=== PATIENT | male | born 1950 | race Caucasian/White ===

== ENCOUNTER 2016-08-30 21:58 | Emergency (ER) | payer MEDICARE, OTHER ==
--- NOTE | 2016-08-30 22:41 | RADIOLOGY REPORT ---
HISTORY: Left thumb injury. COMPARISON: None. FINDINGS: 3 views of the fingers obtained. There is no fracture. There is no lytic or sclerotic lesion. There is no radiopaque foreign body. There is hyperextension of the thumb at the interphalangeal joint on the lateral view without dislocation. IMPRESSION: 1. No acute fracture. 2. Hyperextension of the thumb at the interphalangeal joint on the lateral view. Clinical correlation with physical exam is suggested. Ligamentous or tendinous injury cannot be excluded. Final Electronic Signature: This report was electronically signed by Osmel Hill MD on 08/30/2016 1 0:39 PM. [email or web address] /
--- NOTE | 2016-08-30 22:56 | ER PHYSICIAN DOCUMENTATION ---
Physician Documentation [facility] Name:Shiva Ellis Age:66 yrs Sex:Male :1950 Arrival Date:08/30/2016 Time:21:58 Bed6 Private MD:Aleida Villareal EDklaudiaFranck Disposition: 08/30/16 22:42 Discharged to Home/Self Care. Impression: Thumb Sprain. - Condition is Good. - Discharge Instructions: SPRAIN HAND. - Medical Reconciliation form form. - Follow up: Aleida Villareal MD; When: 7 - 10 days; Reason: Recheck today's complaints. - Problem is new. - Symptoms have improved. HPI: 08/30 22:38 This 66 yrs old Male presents to ER via Walk In with complaints of Hand sc Injury - LEFT. 22:38 The patient or guardian reports injury. The complaints affect the palmar aspect of sc distal phalanx of left thumb. Context: The problem was sustained at home, resulted from heavy wire from O2 concentrator fell on thumb. Onset: The symptom(s)/episode began/occurred just prior to arrival. Modifying factors: the symptoms are aggravated by nothing. Associated signs and symptoms: The patient has no apparent associated signs or symptoms. Historical: - Allergies: phenylthiazine; - PMHx: Asthma; - PSHx: Appendectomy; Knee surgery; HERNIA REPAIR; - Tetanus: < 10 years. - Ebola Screening: : Patient denies exposure to infectious person. Patient denies travel to an Ebola-affected area in the 21 days before illness onset. . - Immunization history: Flu Vaccine < 1 year. - Social history: Smoking status: Patient states was never smoker of tobacco. Patient/guardian denies using alcohol. ROS: 22:40 Constitutional: Negative for fever, chills, and weight loss. sc Eyes: Negative for injury, pain, redness, and discharge. ENT: Negative for injury, pain, and discharge. Neck: Negative for injury, pain, and swelling. Cardiovascular: Negative for chest pain, palpitations, and edema. Back: Negative for injury and pain. Skin: Negative for injury, rash, and discoloration. 22:40 Neuro: Negative for headache, weakness, numbness, tingling, and seizure. sc 22:40 MS/extremity: Positive for injury or acute deformity. Exam: Constitutional: This is a well developed, well nourished patient who is awake, alert, and in no acute distress. Head/Face: Normocephalic, atraumatic. Eyes: Pupils equal round and reactive to light, extra-ocular motions intact. Lids and lashes normal. Conjunctiva and sclera are non-icteric and not injected. Cornea within normal limits. Periorbital areas with no swelling, redness, or edema. Skin: Warm, dry with normal turgor. Normal color with no rashes, no lesions, and no evidence of cellulitis. 22:40 Neuro: Awake and alert, GCS 15, oriented to person, place, time, and situation. tn Cranial nerves II-XII grossly intact. Motor strength 5/5 in all extremities. Sensory grossly intact. Cerebellar exam normal. Normal gait. 22:40 Musculoskeletal/extremity: Extremities: grossly normal except: noted in the palmar aspect of distal phalanx of left thumb: ROM: intact in all extremities, Circulation is intact in all extremities. Sensation intact. 22:40 Skin: injury, tender over ip joint of thumb, good flexion and extension against resistance. Vital Signs: 22:13 BP 120 / 97; Pulse 98; Resp 17; Pulse Ox 92% on R/A; Weight 93.89 kg; Height 6 ft. 2 lb in. (187.96 cm); Pain 7/10; 22:13 Body Mass Index 26.58 (93.89 kg, 187.96 cm) lb MDM: 22:29 Patient medically screened. tn 22:41 Differential diagnosis: dislocation, closed fracture. Data reviewed: vital signs, tn nurses notes, radiologic studies, plain films, and as a result, I will discharge patient. Counseling: I had a detailed discussion with the patient and/or guardian regarding: the historical points, exam findings, and any diagnostic results supporting the discharge/admit diagnosis, radiology results, the need for outpatient follow up, for a referral to a specialist. 08/30 22:21 Order name: FINGER: MIN [address] [place] [id number] EDMS 08/30 22:43 Order name: FINGER: MIN [address] [place] [id number]; Complete Time: 22:43 EDMD 08/30 22:43 Interpretation: Normal. tn 08/30 22:43 Order name: ORTHO: Splint; Complete Time: 22:55 tn Dispensed Medications: No medications were administered Signatures: Chew, Franck, MD MD sc Bollock, Leanna lb
--- NOTE | 2016-08-30 22:56 | ER NURSING DOCUMENTATION ---
Nurse's Notes [facility] Name:Shiva Ellis Age:66 yrs Sex:Male :1950 Arrival Date:08/30/2016 Time:21:58 Bed6 Private MD:Aleida Villareal Diagnosis:Thumb Sprain Presentation: 08/30 22:00 Acuity: ASIA 4 lb 22:10 Presenting complaint: Patient states: left thumb pain s/p injury 1 hour ago struck by lb heavy object. no swelling noted. Transition of care: Home. Notified ED Physician of Dr. Carrillo notified. 22:10 Method Of Arrival: Walk In lb Triage Assessment: 22:12 General: Appears in no apparent distress, Behavior is appropriate for age. Pain: lb Complains of pain in palmar aspect of distal phalanx of left thumb and palmar aspect of proximal phalanx of left thumb Pain does not radiate. Pain currently is 7 out of 10 on a pain scale. Pain began 1 hour ago. Musculoskeletal: No deficits noted. Injury Description: pain to left thumb. Historical: - Allergies: phenylthiazine; - PMHx: Asthma; - PSHx: Appendectomy; Knee surgery; HERNIA REPAIR; - Tetanus: < 10 years. - Ebola Screening: : Patient denies exposure to infectious person. Patient denies travel to an Ebola-affected area in the 21 days before illness onset. . - Immunization history: Flu Vaccine < 1 year. - Social history: Smoking status: Patient states was never smoker of tobacco. Patient/guardian denies using alcohol. Screenin:13 Infectious Disease Risk None. Abuse screen: Denies threats or abuse. Denies injuries lb from another. Nutritional screening: No deficits noted. Assessment: 22:13 See Triage Assessment done by same RN. lb 22:20 Reassessment: pt refused ice for his thumb, wants to see the first. lb Vital Signs: 22:13 BP 120 / 97; Pulse 98; Resp 17; Pulse Ox 92% on R/A; Weight 93.89 kg; Height 6 ft. 2 lb in. (187.96 cm); Pain 7/10; 22:13 Body Mass Index 26.58 (93.89 kg, 187.96 cm) lb ED Course: 21:59 Patient arrived in ED. ma1 21:59 Aleida Villareal MD is Private Physician. ma1 22:00 Leanna Peoples is Primary Nurse. lb 22:09 Triage completed. lb 22:13 Valuables Remains with patient. lb 22:21 Port Xray Completed. dnn 22:21 FINGER: MIN [address] [place] [id number] In Process Unspecified. EDMS 22:29 Franck Carrillo MD is Attending Physician. il 22:42 Aleida Villareal MD is Referral Physician. il 22:52 alumafoam splint to left thumb. lb Administered Medications: No medications were administered Outcome: 22:42 Discharge ordered by . il 22:53 Discharged to home ambulatory. 22:53 Condition: good 22:53 Discharge Assessment: Patient awake, alert and oriented x 3. No cognitive and/or functional deficits noted. Patient verbalized understanding of disposition instructions. 22:53 Instructed on discharge instructions, follow up and referral plans. [facility] 22:55 Patient left the ED. 08/31 12:02 Discharge F/U Call: Unable to reach: no answer st Signatures: Dispatcher [employer] EDMS Marium Aceves RN RN Franck Rogers MD MD il Frantz Becker Lynda Pascale [place] ma1
== END 2016-08-30 22:55 | disposition home or self-care (01) ==
LOC: ER 21:58
DX: S63.602A Unspecified sprain of left thumb, initial encounter (principal); W20.8XXA Other cause of strike by thrown, projected or falling object, initial encounter; Y92.019 Unspecified place in single-family (private) house as the place of occurrence of the external cause
CPT/HCPCS: 99283